=== PATIENT | male | born 1955 | race Hispanic/Latino ===

== ENCOUNTER → 2021-08-31 | Outpatient (CLI) | payer BC | END | disposition home or self-care (01) | LOC: RAH 09:02 | PROVIDERS: ATTEND Otolaryngology Plastic Surgery within the Head & Neck | DX: J38.01 Paralysis of vocal cords and larynx, unilateral (principal); J84.10 Pulmonary fibrosis, unspecified; I25.10 Atherosclerotic heart disease of native coronary artery without angina pectoris; I51.7 Cardiomegaly; I70.8 Atherosclerosis of other arteries; K44.9 Diaphragmatic hernia without obstruction or gangrene; M47.812 Spondylosis without myelopathy or radiculopathy, cervical region; M47.815 Spondylosis without myelopathy or radiculopathy, thoracolumbar region; R22.1 Localized swelling, mass and lump, neck | CPT/HCPCS: 70490; 71250 ==

== ENCOUNTER 2024-01-23 12:47 | Emergency (ER) | payer OTHER ==
[~2024-01-23] VITALS: Ht 167.6 cm; Wt 73.5 kg
[~2024-01-23 12:47] MED LIST: AEC81 PO; ATOR10 PO; CLOP75TA32 PO; DAPA10TA PO; ENAL-89 PO; LEVA15HF3 IH; METF-446 PO; UMEC1DIS IH
[2024-01-23 13:49] LABS: BASOPHILS # (AUTO) 0.03 K/uL (0.00-0.20); BASOPHILS % (AUTO) 0.2 % (0.0-5.0); EOSINOPHILS % (AUTO) 1.5 % (0.0-8.0); HEMATOCRIT 35.9 % (42-54); IMMATURE GRANULOCYTE ABSOLUTE 0.03 K/uL (0-1); LYMPHOCYTES # (AUTO) 2.5 K/uL (1.0-4.8); LYMPHOCYTES % (AUTO) 19.2 % (21.0-51.0); MEAN CORPUSCULAR HEMOGLOBIN 29.4 pg (27.0-33.0); MEAN CORPUSCULAR HGB CONC 32.9 g/dL (32.0-36.0); MEAN CORPUSCULAR VOLUME 89.5 fL (79-99); MONOCYTES # (AUTO) 1.7 K/uL (0.1-1.0); NEUTROPHILS # (AUTO) 8.6 K/uL (1.8-7.7); NEUTROPHILS % (AUTO) 65.9 % (40.0-77.0); PLATELET COUNT (AUTO) 319 K/uL (130-400); RED BLOOD CELL COUNT(AUTO) 4.01 MIL/uL (4.50-6.20); RED CELL DISTRIBUTION WIDTH 14.1 % (11.0-15.5)
[2024-01-23 13:57] LABS: CREATININE 0.8 mg/dL (0.5-1.3); POTASSIUM 4.2 mmol/L (3.5-5.1)
[2024-01-23 13:58] VITALS: TEMP 98.6
[2024-01-23] MEDS: acetaMINOPHEN WITH coDEINE 1 TAB TAB PO ONE (14:21)
[2024-01-23] MEDS: CYCLOBENZAPRINE HCL 10 MG TABLET PO ONE (14:21)
[2024-01-23] MEDS ORDERED: BUTA-271 PO (16:09)
[2024-01-23 16:40] VITALS: BP 133/65; PULSE 67; RESP 17; O2SAT 98
== END 2024-01-23 16:36 | disposition home or self-care (01) ==
LOC: EDH 12:51
DX: G44.209 Tension-type headache, unspecified, not intractable (principal); Z79.899 Other long term (current) drug therapy; Z79.82 Long term (current) use of aspirin; Z79.84 Long term (current) use of oral hypoglycemic drugs
CPT/HCPCS: 36415; 70450; 80048; 85025